=== PATIENT | male | born 1980 | race Caucasian/White ===

== ENCOUNTER 2017-09-07 13:12 | Emergency (ER) | payer OTHER ==
[2017-09-07] MEDS: CEPHALEXIN 500 MG CAP PO (16:58)
[2017-09-07] MEDS: TRIMETHOPRIM/SULFAMETHOX (DS) TAB PO (16:58)
== END 2017-09-07 18:05 | disposition home or self-care (01) ==
LOC: FTE 13:12
DX: E11.621 Type 2 diabetes mellitus with foot ulcer (principal); L97.512 Non-pressure chronic ulcer of other part of right foot with fat layer exposed; L84 Corns and callosities; I10 Essential (primary) hypertension
CPT/HCPCS: 73630; 99284-25